=== PATIENT | male | born 1940 | race Caucasian/White ===

== ENCOUNTER → 2023-11-07 15:28 | Outpatient (REF) | payer OTHER, SELFPAY | LOC: HWRAD 15:28 | PROVIDERS: ATTENDING PHYSICIAN Student in an Organized Health Care Education/Training Program; FAMILY PHYSICIAN Nurse Practitioner Family | DX: M25.571 Pain in right ankle and joints of right foot (principal); M19.079 Primary osteoarthritis, unspecified ankle and foot | CPT/HCPCS: 73700 ==

== ENCOUNTER → 2024-01-22 10:04 | Outpatient (REF) | payer OTHER, SELFPAY | LOC: HWRAD 10:04 | PROVIDERS: ATTENDING PHYSICIAN Physician Assistant; FAMILY PHYSICIAN Nurse Practitioner Family | DX: E27.8 Other specified disorders of adrenal gland (principal) | CPT/HCPCS: 71260; 74178; Q9967 ==

== ENCOUNTER 2024-10-25 04:25 | Emergency (ER) | payer OTHER, SELFPAY ==
[2024-10-25] VITALS (11 sets, daily range): BP systolic 112–132; BP diastolic 62–85; PULSE 111–125; O2SAT 99
[2024-10-25 05:01] LABS: % Basophils 0.1 % (0-2); % Eosinophils 0.1 % (0-6); % Immature Granulocytes 0.3 % (0-0.5); % Lymphocytes 13.8 % (20.5-51.1); % Monocytes 17.8 % (1.7-9.3); % Neutrophils 67.9 % (42.2-75.2); Absolute Monocytes 1.2 10^3/uL (0.1-0.6); Absolute Neutrophils 4.7 10^3/uL (1.4-6.5); Hematocrit 43.5 % (39.0-52.0); Hemoglobin 14.7 g/dL (13.0-18.0); Mean Corp Hgb Conc. 33.8 g/dL (33.0-37.0); Mean Corpuscular Hgb 30.2 pg (27.0-31.0); Mean Corpuscular Volume 89.5 fL (80.0-94.0); Mean Platelet Volume 10.3 fL (7.4-10.4); Nucleated Red Blood Cells % 0 % (-); Platelet Count 158 10^3/uL (130-400); Red Blood Cell Count 4.86 10^6/uL (4.70-6.10); Red Cell Dist. Width 12.4 % (11.5-14.5); White Blood Cell Count 6.9 10^3/uL (4.8-10.8)
[2024-10-25 05:07] LABS: ALT (SGPT) 34 U/L (0-50); AST (SGOT) 72 U/L (17-59); Albumin 4.1 g/dl (3.5-5.0); Alkaline Phosphatase 96 U/L (38-126); Blood Urea Nitrogen 15 mg/dl (9-20); Calcium 8.8 mg/dl (8.4-10.2); Carbon Dioxide 25 mmol/L (22-30); Chloride 100 mmol/L (98-107); Glucose 111 mg/dl (70-99); Potassium 4.7 mmol/L (3.5-5.1); Sodium 136 mmol/L (135-145); Total Bilirubin 1.2 mg/dl (0.2-1.3); Total Protein 6.6 g/dl (6.3-8.2); eGFR > 60.00
--- NOTE | 2024-10-25 06:14 | ED.GENMED ---
History of Present Illness
<Luis Bone MD - Last Filed: 10/25/24 10:25>
General
Chief Complaint: Weakness
Source: patient
Exam Limitations: none
Time Seen by Provider: 10/25/24 06:06
History of Present Illness
History of Present Illness:
Patient fell down 12 stairs 2 days ago. Injuring his lower back multiple abrasions. Once he falls he had difficulty getting up. This started 2 to 3 weeks ago. Fell this morning and also could not get up. No syncope. Did hit his head. No
significant headache neck pain some mild vague chest pain worse with breathing. No abdominal pain. Some low back pain. Last tetanus is unknown. This weakness is a new issue over the last 2 to 3 weeks
Past History
<Luis Bone MD - Last Filed: 10/25/24 10:25>
Past History
ED Past Medical History: CAD, HTN, Hypercholesterolemia and Other (DJD); Negative OK
ED Past Surgical History: Cardiac (CABG 1999) and Orthopedic (Left shoulder surgery May 2014)
Social History
Tobacco: Non-smoker
Alcohol: Daily
Drug: None
Personal:
Living: with family
Employment: Retired
Family History
Family History: Hypertension
Review of Systems
<Luis Bone MD - Last Filed: 10/25/24 10:25>
Review of Systems
All Other Systems: Not applicable
Constitutional: Denies fever
Cardiac: Reports no symptoms
ABD/GI: Reports no symptoms
Phy Exam
<Luis Bone MD - Last Filed: 10/25/24 10:25>
Physical Exam
Physical Exam:
TRAUMA EXAM:
VITAL SIGNS: Vital signs reviewed, cooperative
DISTRESS: No active disease
EYES: Pupils reactive, no orbital trauma
NOSE: No deformity or epistaxis
FACE AND SCALP: No scalp or facial trauma, external canals no blood
NECK: Supple nontender
BACK: Back nontender, pelvis stable to compression
RESPIRATORY: No distress, breath sounds normal, no tender chest wall
CARDIAC: No murmur, pulses equal and strong
ABDOMEN: Soft nontender bowel sounds normal
SKIN: Abrasions to both arms
EXTREMITIES: Mild swelling right dorsal hand but no bony tenderness. Pelvis is stable. Mild paralumbar tenderness.
NEUROLOGICAL: Alert, oriented, no motor deficits. Generally weak appearing slightly masked facies.
PSYCH: Mood affect normal
Course
<Luis Bone MD - Last Filed: 10/25/24 10:25>
Orders/Labs/Results
Orders:
Orders
10/25/24 04:36
CT Cervical Spine W/o Iv Contr Urgent
Comment:
Reason For Exam: FALL DOWN FLIGHT OF STEPS
CT Head W/o Iv Contrast Urgent
Comment:
Reason For Exam: FALL DOWN FLIGHT OF STEPS
Chest/Abd/Pelvis w Contrast CT [CT Chest/abd/pel W Iv Cont] Urgent
Comment:
Reason For Exam: FALL DOWN FLIGHT OF STEPS
10/25/24 04:41
Alcohol Urgent
CMP [Comprehensive Metabolic Panel] Urgent
Complete Blood Count/With Diff Urgent
Magnesium Urgent
TSH Reflex To Free T4 Urgent
Comment: ADD ON
10/25/24 06:13
Add On- LAB Urgent
Tests Added?: tsh reflex t4, magnesium
Cardiac Monitoring- Treatment ONCE
CR Cervical Spine 2 or 3 Vw Urgent
Comment:
Reason For Exam: Trauma/rib pain
Lumbar Spine, 2 or 3 View [CR Lumbar Spine 2 Or 3 Views] Urgent
Comment:
Reason For Exam: Low back pain after fall
Pelvis, 1 or 2 Views CR [CR Pelvis - 1 Or 2 Views ] Urgent
Comment:
Reason For Exam: Low back pain after fall
10/25/24 06:17
Add On- LAB Urgent
Tests Added?: alcohol
10/25/24 09:49
EKG [Electrocardiogram (*1)] Urgent
Reason for Study: Fatigue / Weakness
10/25/24 09:50
EKG- Treatment ONCE
10/25/24 10:24
Case Management Consult ONCE
Case Management Consult: Discharge Planning
Physical Therapy Consult [Pt Eval And Treat] Urgent
Activity Level: Ambulate
10/25/24 13:45
Urinalysis Reflex To Culture Urgent
Date Specimen was Collected: 10/25/24
Time Specimen was Collected: 13:43
Urine Microscopic Reflex Cult Urgent
Abnormal Lab Results
10/25/24 10/25/24
04:41 13:45
Absolute Lymphs (auto) 1.0 L 10^3/uL
(1.2-3.4)
Absolute Monos (auto) 1.2 H 10^3/uL
(0.1-0.6)
Lymphocytes % 13.8 L %
(20.5-51.1)
Monocytes % 17.8 H %
(1.7-9.3)
Glucose 111 H mg/dl
(70-99)
AST 72 H U/L
(17-59)
Urine Ketones 2+ A
(Negative)
Ur Occult Blood Reflex 2+ A
(Negative)
Urine RBC 3-6 A /HPF
(0-2)
Urine Albumin (Reflex) 1+ A
(Neg - Trace)
10/25/24 04:41
10/25/24 04:41
Vital Signs
Initial and Last Documented VS:
Initial Vital Signs
Temp Pulse Resp BP Pulse Ox
97.9 F 104 19 126/78 99
10/25/24 04:30 10/25/24 04:30 10/25/24 04:30 10/25/24 04:30 10/25/24 04:30
Last Documented Vital Signs
Temp Pulse Resp BP Pulse Ox
97.9 F 107 23 129/83 97
10/25/24 04:30 10/25/24 15:00 10/25/24 15:00 10/25/24 13:00 10/25/24 07:15
<Ana Edgar MD - Last Filed: 10/25/24 16:05>
Orders/Labs/Results
Orders:
Orders
10/25/24 04:36
CT Cervical Spine W/o Iv Contr Urgent
Comment:
Reason For Exam: FALL DOWN FLIGHT OF STEPS
CT Head W/o Iv Contrast Urgent
Comment:
Reason For Exam: FALL DOWN FLIGHT OF STEPS
Chest/Abd/Pelvis w Contrast CT [CT Chest/abd/pel W Iv Cont] Urgent
Comment:
Reason For Exam: FALL DOWN FLIGHT OF STEPS
10/25/24 04:41
Alcohol Urgent
CMP [Comprehensive Metabolic Panel] Urgent
Complete Blood Count/With Diff Urgent
Magnesium Urgent
TSH Reflex To Free T4 Urgent
Comment: ADD ON
10/25/24 06:13
Add On- LAB Urgent
Tests Added?: tsh reflex t4, magnesium
Cardiac Monitoring- Treatment ONCE
CR Cervical Spine 2 or 3 Vw Urgent
Comment:
Reason For Exam: Trauma/rib pain
Lumbar Spine, 2 or 3 View [CR Lumbar Spine 2 Or 3 Views] Urgent
Comment:
Reason For Exam: Low back pain after fall
Pelvis, 1 or 2 Views CR [CR Pelvis - 1 Or 2 Views ] Urgent
Comment:
Reason For Exam: Low back pain after fall
10/25/24 06:17
Add On- LAB Urgent
Tests Added?: alcohol
10/25/24 09:49
EKG [Electrocardiogram (*1)] Urgent
Reason for Study: Fatigue / Weakness
10/25/24 09:50
EKG- Treatment ONCE
10/25/24 10:24
Case Management Consult ONCE
Case Management Consult: Discharge Planning
Physical Therapy Consult [Pt Eval And Treat] Urgent
Activity Level: Ambulate
10/25/24 13:45
Urinalysis Reflex To Culture Urgent
Date Specimen was Collected: 10/25/24
Time Specimen was Collected: 13:43
Urine Microscopic Reflex Cult Urgent
Abnormal Lab Results
10/25/24 10/25/24
04:41 13:45
Absolute Lymphs (auto) 1.0 L 10^3/uL
(1.2-3.4)
Absolute Monos (auto) 1.2 H 10^3/uL
(0.1-0.6)
Lymphocytes % 13.8 L %
(20.5-51.1)
Monocytes % 17.8 H %
(1.7-9.3)
Glucose 111 H mg/dl
(70-99)
AST 72 H U/L
(17-59)
Urine Ketones 2+ A
(Negative)
Ur Occult Blood Reflex 2+ A
(Negative)
Urine RBC 3-6 A /HPF
(0-2)
Urine Albumin (Reflex) 1+ A
(Neg - Trace)
10/25/24 04:41
10/25/24 04:41
Vital Signs
Initial and Last Documented VS:
Initial Vital Signs
Temp Pulse Resp BP Pulse Ox
97.9 F 104 19 126/78 99
10/25/24 04:30 10/25/24 04:30 10/25/24 04:30 10/25/24 04:30 10/25/24 04:30
Last Documented Vital Signs
Temp Pulse Resp BP Pulse Ox
97.9 F 107 23 129/83 97
10/25/24 04:30 10/25/24 15:00 10/25/24 15:00 10/25/24 13:00 10/25/24 07:15
<Luis Bone MD - Last Filed: 10/25/24 10:25>
MDM/Problems Addressed
Differential Diagnosis Includes:
Patient has 2 issues the trauma related to falling. Clinically stable. Will CT his head and cervical spine. Clean his wounds tetanus shot x-ray of the chest pelvis and lumbar spine. Second issue is why he is generally weak and falling. This may
be related to an electrolyte issue. Possibly related to alcohol use. Possibly neurologic issue like early Parkinson's. Workup in progress.
<Luis Bone MD - Last Filed: 10/25/24 10:25>
*Pulse Oximetry
Patient hypoxic: no
Data Reviewed
Review of Other/Old Records Reveals: Labs, Records and Testing
<Ana Edgar MD - Last Filed: 10/25/24 16:05>
*Critical Care Note
Total Time (30-74mins, 75-104mins- exclusive of procedures): Not Applicable
<Ana Edgar MD - Last Filed: 10/25/24 16:05>
Update Note
Update Note:
3:15 PM patient evaluated by PT and case management. Patient now has placement in acute rehab facility
ED Attending Note
<Luis Bone MD - Last Filed: 10/25/24 10:25>
-
Portions of this chart may have been created with voice recognition software.� Occasional wrong word or��sound alike� substitutions may have occurred due to the inherent limitations of voice recognition software.
Discharge Plan
Departure
Patient Disposition: Acute Rehab Facility
Date of Disposition: 10/25/24
Time of Disposition: 16:01
Patient with high blood pressure during this ER visit?: Yes
Condition: Good
Covid-19: Not Applicable
Discharge Problem:
Generalized muscle weakness, Falls frequently, Closed head injury
Instructions: Head injury in adults, Generalized Weakness (DC), BLOOD PRESSURE
Prescriptions:
No Action
metoprolol tartrate 50 MG tablet
50 mg PO BID
PreserVision AREDS 2,148 mcg-113 mg-45 mg-17.4mg Tablet
1 tab PO BID
tamsulosin 0.4 MG capsule
0.4 mg PO DAILY Qty: 7 0RF
aspirin 81 mg Tablet,Delayed Release (Dr/Ec)
81 mg PO DAILY
benazepril 10 mg Tablet
10 mg PO DAILY
Lumigan 0.01 % Drops
1 drp BOTH EYES HS
Theragen Tablet
1 tab PO DAILY
atorvastatin [Lipitor] 40 mg Tablet
40 mg PO QPM
Referrals:
UNKNOWN - PT DOES,NOT KNOW [Unknown Provider] -
Interventions
Interventions:
*Risk Screen - Suicide Last Done: 10/25/24 04:30
*General Assessment Last Done: 10/25/24 06:03
*Neglect/Abuse Screening Last Done: 10/25/24 04:30
ED- Fall Risk Assessment Last Done: 10/25/24 06:03
*ED COVID-19 Vaccine History Last Done: 10/25/24 06:03
ED- Cardiac Assessment Last Done: 10/25/24 09:30
ED- Neurological Assessment Last Done: 10/25/24 09:30
ED- Pulmonary Assessment Last Done: 10/25/24 06:03
Discharge Date and Time
Print Language: ROMANIAN
[2024-10-25 06:59] LABS: Magnesium 1.8 mg/dl (1.6-2.3)
[2024-10-25 07:03] LABS: Alcohol None Detected
[2024-10-25 07:41] LABS: TSH Reflex To Free T4 1.04 uIU/ml (0.47-4.68)
--- NOTE | 2024-10-25 11:33 | CM ---
Addendum entered by Lavonne Joya 10/25/24 14:58:
spoke with son, Paco, via phone; discharge plan discussed; Son will provide transport to [facility]; made aware that facility can accept his father today @ 1630
Addendum entered by Laovnne Joya 10/25/24 14:11:
Authorization Approved; Auth # [id number]
Approved for today, 10/25/2024 to 10/29/2024
Call # [phone] for Next Review
[facility] can accept patient today @ 1630
Report # [phone]

Addendum entered by Lavonne Joya 10/25/24 13:34:
[facility] accepted SNF referral; bed available today; pending AUTH approval
Addendum entered by Lavonne Joya 10/25/24 11:57:
Family Physician verified: Marely Sifuentes NP;
Original Note:
Met with patient and his son/primary contact in the ED bed 28
Pharmacy verified: [facility] @ [address]
Patient and live in a [place] w/basement; 4 steps to enter; 12 steps down to basement; railings present; bath has tub w/shower
Reported he was independent with ADLs; ambulated with a cane; drives; retired
No SNF or home health utilization history
Son will transport
PT assessed and recommended short term SNF; list of facilities from Medicare.gov provided and reviewed; [facility] is #1 preference; other preference is [facility]; referrals sent via [facility]
Plan: Discharge to SNF pending bed availability and AUTH approval
[2024-10-25 14:31] LABS: Urine Albumin 1+ (Neg - Trace); Urine Bilirubin Negative (Negative); Urine Character Clear (Clear); Urine Color Yellow; Urine Glucose Negative (Negative); Urine Ketone 2+ (Negative); Urine Leukocyte Negative (Negative); Urine Nitrite Negative (Negative); Urine Occult Blood 2+ (Negative); Urine Specific Gravity 1.015 (<1.030); Urine Urobilinogen Negative (Neg - 1+)
== END 2024-10-25 17:05 ==
LOC: EMR 04:25
PROVIDERS: Emergency Medicine; EMERGENCY PHYSICIAN Emergency Medicine; FAMILY PHYSICIAN Nurse Practitioner Family
DX: S09.90XA Unspecified injury of head, initial encounter (principal); W19.XXXA Unspecified fall, initial encounter; R29.6 Repeated falls; M62.81 Muscle weakness (generalized); I25.10 Atherosclerotic heart disease of native coronary artery without angina pectoris; I10 Essential (primary) hypertension; E78.00 Pure hypercholesterolemia, unspecified; Z95.1 Presence of aortocoronary bypass graft
CPT/HCPCS: 99285; 70450; 71260; 72040; 72100; 72125; 72170; 74177; 80053; 81003; 81015; 82077; 83735; 84443; 85025; 93005; Q9967

== ENCOUNTER → 2024-12-17 09:49 | Outpatient (REF) | payer OTHER, SELFPAY | LOC: HWRAD 09:49 | PROVIDERS: ATTENDING PHYSICIAN Nurse Practitioner Family | DX: E04.2 Nontoxic multinodular goiter (principal) | CPT/HCPCS: 76536 ==

== ENCOUNTER → 2025-01-27 12:28 | Outpatient (REF) | payer OTHER, SELFPAY | LOC: RAD 12:28 | PROVIDERS: ATTENDING PHYSICIAN Surgery Vascular Surgery; FAMILY PHYSICIAN Nurse Practitioner Family | DX: I86.8 Varicose veins of other specified sites (principal) | CPT/HCPCS: 93971 ==

== ENCOUNTER → 2025-04-28 07:29 | Outpatient (REF) | payer OTHER, SELFPAY | LOC: MRI 3T 07:29 | PROVIDERS: ATTENDING PHYSICIAN Specialist; FAMILY PHYSICIAN Nurse Practitioner Family | DX: G20.A1 Parkinson's disease without dyskinesia, without mention of fluctuations (principal) | CPT/HCPCS: 70551 ==